=== PATIENT | male | born 1955 | race Two or more races ===

== ENCOUNTER → 2024-07-30 | Outpatient (CLI) | payer OTHER, SELFPAY ==
[2024-07-30 09:06] LABS: Cardiac Risk Estimate 3.5 RATIO (4.0-6.7); Cholesterol 157 mg/dL (132-200); HDL Cholesterol 45 mg/dL (40-60); LDL Cholesterol,Calculated 91 mg/dL (0-130); Triglycerides 105 mg/dL (30-150)
== END | disposition home or self-care (01) ==
PROVIDERS: PCP Internal Medicine; Referring Provider Internal Medicine Cardiovascular Disease; Visit Provider Internal Medicine Cardiovascular Disease
DX: E78.5 Hyperlipidemia, unspecified (principal)
CPT/HCPCS: 36415; 80061

== ENCOUNTER 2025-04-21 10:46 | Emergency (ER) | payer OTHER, SELFPAY ==
[2025-04-21 10:48] VITALS: BP 151/82; PULSE 72; RESP 17; TEMP 36.6; O2SAT 95
[2025-04-21 10:59] VITALS: PULSE 98; O2SAT 98; BMI 30.6
[2025-04-21] MEDS: MethylPREDNISolone SOD SUCC 62.5 MG/ML 2ML VIAL 125 MG IVP (11:32)
[2025-04-21] MEDS: FAMOTIDINE INJ 10 MG/ML VIAL 2 ML 20 MG IVP (11:33)
[2025-04-21] MEDS: RINGERS LACTATED 1000 ML 1,000 ML 999 ML IV (11:35)
[2025-04-21 12:06] VITALS: BP 158/91; PULSE 60; RESP 18; TEMP 36.8; O2SAT 95
[2025-04-21] MEDS: TETRACAINE PF OP SOL 0.5% 4 ML DRPETTE 1 DROP BOTH EYES (12:33)
[2025-04-21] MEDS: FLUORESCEIN SOD 1 MG STRP BOTH EYES (12:33)
[2025-04-21] MEDS: Erythromycin Op Oint 0.5% 1 GM PACKET RIGHT EYE (12:33)
--- NOTE | 2025-04-21 13:06 | EDNOTE_ITS ---
ED Allergic Reaction RME/HPI General Chief complaint: Allergic Reaction Stated complaint: ALLERGIC REACTION Time Seen by Provider: 04/21/25 11:22 Source: patient Arrival date/time: 04/21/25 10:46 Mode of arrival: ambulatory Limitations: no limitations RME / HPI RME / HPI narrative: Patient presents with concerns for rash after sustaining multiple bee stings. Patient was working in an [employer] field when mutliple bees stung him. He is not allergic. He sough help from his adult son that removed many bee stingers. Denies f,c,n,v,sob, throat swelling, abd, diarrhea. Endorses itchiness on face and arms. Denies med problems, meds, allergies, drugs, alc, smoking MD complaint: allergic reaction Related Data Previous Rx's ?Medication ?Instructions ?Recorded epinephrine 0.3 mg/0.3 mL 0.3 ml subcut .every 3-5 min s PRN 04/21/25 injection, auto-injector (EpiPen) hypersensitivity janki ction #2 ea erythromycin 5 mg/gram (0.5 %) eye 0.5 inch ophthalmic (eye) QID #3.5 04/21/25 ointment grams Allergies Allergy/AdvReac Type Severity Reaction Status Date / Time metoclopramide Allergy Mild HULLICANTIN Verified 10/07/11 13:39 G ED Exam General Limitations: Present no limitations General appearance: Present alert and other (uncomfortable 2/2 multiple bee stings ) Head Head exam: Present normocephalic and other (>10 stingers on patient's face and occiput removed ) Eye Eye exam: Present conjunctival injection and other (corneal abrasion identified on right eye no evidence of globe rupture or foreign body to the eye. Patient with intact EOMM. No dc) ENT ENT exam: Present normal exam Neck Neck exam: Present normal inspection Chest Chest inspection: Present normal inspection Respiratory Respiratory exam: Present normal lung sounds bilaterally; Absent respiratory distress Cardiovascular Cardiovascular exam: Present regular rate and normal rhythm Abdominal Exam Abdominal exam: Present soft; Absent distention or tenderness Extremities Exam Extremities exam: Present other (multiple bee stingers appreciated on arms, mild maculopapular erythematous lesions with areas of confluence, no oropharyngeal involvement no tongue swelling, no stridor) Course Quality Measures none Orders Category Date Time Status DiphenhydrAMINE INJ [Benadryl Inj] Med 04/21/25 11:24 Discontinued 25 mg IVP X1 ONE Erythromycin Op Oint 0.5% Med 04/21/25 12:27 Discontinued 1 gm RIGHT EYE X1 ONE Famotidine Inj [Pepcid Inj] Med 04/21/25 11:24 Discontinued 20 mg IVP X1 ONE Fluorescein Sodium [Bio-[place]] Med 04/21/25 12:27 Discontinued 1 mg BOTH EYES X1 ONE MethylPREDNISolone.* [SoluMEDROL Inj] Med 04/21/25 11:24 Discontinued 125 mg IVP X1 ONE Ringers Lactated 1000 ml [Lactated Ringers] 1,000 ml Med 04/21/25 11:24 Discontinued IV 999 mls/hr TETRACAINE Op Lisbet 0.5% [Pontocaine Op Lisbet 0.5%] Med 04/21/25 12:27 Discontinued 1 drop BOTH EYES X1 ONE Vital Signs Vital signs: Vital Signs Temperature 97.9 F 04/21/25 10:48 Pulse Rate 72 04/21/25 10:48 Respiratory Rate 17 04/21/25 10:48 Blood Pressure 151/82 H 04/21/25 10:48 Pulse Oximetry (%) 95 04/21/25 10:48 Oxygen Delivery Method Room Air 04/21/25 10:48 Allergic Reaction MDM Narrative MDM Narrative:: Patient is a 69 yo male that is in the ED with concerns for itchy painful on rash on body after having been stung by >20 bees. VS and exam as listed. Patient is HD stable, no stridor, no oropharyngeal swelling, no stridor, no nausea, no abd pain. No evidence of anaphylaxis at this time however given the significant number of bee stings patient was immed placed in a resus room, IV access obtained and given meds for mgt of allergic reaction. Myself and multiple nurses meticulously combed patients entire body and removed all stingers that we could find. ~30 stingers were removed. Patient with eye discomfort but no blurry vision or eye pain. Identified corneal abrasion however no evidence of globe perforation or foreign body. Patient obs for mult hours in the ED, symptoms sig improved. 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 Patient data External records reviewed:: None Clinical information provided by:: patient and family Social determinants that could affect healthcare access:: none Patient has the following chronic illnesses:: none How is presenting disease/condition affected by chronic disease/condition?: un effected by Evaluation data The following diagnostics were reviewed and interpreted by me:: other (specify) (none) Lab and/or radiology exams considered but not ordered:: none Interpretation Summary: see mdm Medications / Prescriptions Medications or Prescriptions considered but not ordered:: none Medication administrations:: Medication Administration History Discontinued Medications Diphenhydramine HCl (Diphenhydramine Inj 50 Mg/Ml Vial) 25 mg IVP X1 ONE Stop: 04/21/25 11:25 Last Admin: 04/21/25 11:33 Dose: 25 mg Documented By: BY Erythromycin (Erythromycin Op Oint 0.5% 1 Gm Packet) 1 gm RIGHT EYE X1 ONE Stop: 04/21/25 12:28 Last Admin: 04/21/25 12:33 Dose: 1 gm Documented By: [facility] Co-signed By: EF Famotidine (Famotidine Inj 10 Mg/Ml Vial 2 Ml) 20 mg IVP X1 ONE Stop: 04/21/25 11:25 Last Admin: 04/21/25 11:33 Dose: 20 mg Documented By: BY Fluorescein Sodium (Fluorescein Sod 1 Mg Strp) 1 mg BOTH EYES X1 ONE Stop: 04/21/25 12:28 Last Admin: 04/21/25 12:33 Dose: 1 mg Documented By: [facility] Lactated Ringer's (Lactated Ringers) 1,000 mls @ 999 mls/hr IV .Q1H1M ONE Stop: 04/21/25 12:24 Last Infusion: 04/21/25 12:34 Dose: Infused Documented By: Admin: 04/21/25 11:35 Dose: 999 mls/hr Documented By: BY Methylprednisolone Sodium Succinate (Methylprednisolone Sod Succ 62.5 Mg/Ml 2ml Vial) 125 mg IVP X1 ONE Stop: 04/21/25 11:25 Last Admin: 04/21/25 11:32 Dose: 125 mg Documented By: BY Tetracaine HCl (Tetracaine Pf Op Lisbet 0.5% 4 Ml Drpette) 1 drop BOTH EYES X1 ONE Stop: 04/21/25 12:28 Last Admin: 04/21/25 12:33 Dose: 1 drop Documented By: [facility] Comments: used by dr. hood see above Consultations Consultation(s) initiated? (list below): No Diagnosis Differential Diagnosis allergic reaction: other (see mdm ) Most likely diagnosis given after review of the tests above:: allergic reaction, multiple bee stings Admission Indicated Admission indicated?: not indicated Admission Request Was there a request for admission?: No Disposition Plan Disposition Plan: Discharge Discharge Attestation Discharge Attestation: The patient and all family members were given an opportunity to ask questions and understood the discharge instructions. Discharge instructions specifically effects, indications for sooner follow up or return to the emergency department, and the expected course of current diagnosis. Patient condition: Stable Critical Care Time Critical Care Time Critical Care Time: Yes Total Critical Care Time (min.): 36 Attestation: Total critical care time: Approximately?36?minutes Due to a high probability of clinically significant, life threatening deterioration, the patient required my highest level of preparedness to inter vene emergently and I personally spent this critical care time directly and personally managing the patient. This critical care time included obtaining a history; examining the patient; pulse oximetry; ordering and review of studies; arranging urgent treatment with development of a management plan; evaluation of patient's response to treatment; frequent reassessment; and, discussions with other providers. This critical care time was performed to assess and manage the high probability of imminent, life-threatening deterioration that could result in multi-organ failure. It was exclusive of separately billable procedures and treating other patients and teaching time. Please see MDM section and the rest of the note for further information on patient assessment and treatment. Discharge Plan Plan Patient Disposition: HOME (Self Care) Prescriptions/Referrals Prescriptions/Med Rec: New epinephrine [EpiPen] 0.3 mg/0.3 mL auto-injector 0.3 ml subcut .every 3-5 mins PRN (Reason: hypersensitivity reaction) Qty: 2 0RF Rx Instructions: 0.3 mL intramuscular as needed, can repeat 3-5mins erythromycin 5 mg/gram (0.5 %) ointment 0.5 inch ophthalmic (eye) QID Qty: 3.5 0RF Rx Instructions: apply to right eye Referrals: No Primary/Family,Physician [Primary Care Provider] - In 1 week Problem List Clinical Impression: Allergic reaction, Bee sting, Abrasion of cornea, right, Conjunctivitis due to adenovirus, right eye Patient/Caregiver Discharge Instructions Education Materials: ED BEE STING General Allergic Rxn, ED Corneal Abrasion Additional Instructions: Por favor hacer teodora con un ophthalmologo esta semana para re-evaluacion de ruiz abrasion corneal Print Language: Bengali Stand Alone Forms: [employer] Award Info., Patient Portal Info Letter
== END 2025-04-21 13:08 | disposition home or self-care (01) ==
PROVIDERS: Emergency Provider Emergency Medicine
DX: S05.01XA Injury of conjunctiva and corneal abrasion without foreign body, right eye, initial encounter (principal); T63.441A Toxic effect of venom of bees, accidental (unintentional), initial encounter; X58.XXXA Exposure to other specified factors, initial encounter; B30.1 Conjunctivitis due to adenovirus
CPT/HCPCS: 96361; 96374; 96375; 99283; J1200; J2919; J3490; J7120; A9270

== ENCOUNTER → 2025-05-08 | Outpatient (CLI) | payer OTHER, SELFPAY ==
--- NOTE | 2025-05-08 10:00 | XR_ITS ---
Examination: CT chest, without intravenous contrast. Sagittal and coronal 2-D reconstructions. Exam date and time: May 08, 2025, 0935 hours INDICATIONS: Smoking history 10 years CTDI:vol (mGy) 12.8 DLP: (mGycm) 492 Technique: Multiple 3.0 mm axial sections of the chest to been obtained. Bone and lung density settings are obtained. Sagittal and coronal 2-D reconstructions have been obtained. Low dose protocols were performed. One or more of the following dose reduction techniques were used; automated exposure control, adjustment of the mA and/or KV according to patient size, use of iterative reconstruction technique. Findings: No thoracic aortic aneurysmal dilatation. Pulmonary artery segments are not enlarged. No paratracheal tracheobronchial or bronchopulmonary adenopathy 3 mm pulmonary nodule left upper lobe image 80 4 mm pulmonary nodule right upper lobe image 229 3 mm pulmonary nodule lingular segment image 284 No lobar pneumonia or pulmonary edema No visualized liver lesion No gallstones No pancreatic or adrenal mass Partial apparent right nephrectomy, no hydronephrosis Diffuse advanced thoracic degenerative disc disease IMPRESSION: Noncalcified pulmonary nodules as above, with the study as baseline recommend continued 6-month follow-up CT chest without contrast
== END | disposition home or self-care (01) ==
PROVIDERS: PCP Internal Medicine; Referring Provider Internal Medicine; Visit Provider Internal Medicine
DX: R91.8 Other nonspecific abnormal finding of lung field (principal)
CPT/HCPCS: 71250